=== PATIENT | male | born 1980 | race Caucasian/White ===

== ENCOUNTER 2025-03-29 15:20 | Inpatient (IN) | payer SELFPAY ==
[~2025-03-29] VITALS: Ht 182.9 cm; Wt 83.5 kg
[2025-03-29 16:47] LABS: BASOPHILS % 0.2 % (0.0-2.0); EOSINOPHILS % 0.3 % (0.0-5.0); HEMATOCRIT. 39.6 % (42.0-52.0); HEMOGLOBIN. 13.2 g/dL (14.0-18.0); LYMPHOCYTES % 8.5 % (20.0-50.0); MEAN CORPUSCULAR HEMOGLOBIN 28.8 pg (28.0-32.0); MEAN CORPUSCULAR HGB CONC 33.4 g/dL (31.0-37.0); MEAN CORPUSCULAR VOLUME 86.3 fL (80.0-94.0); MEAN PLATELET VOLUME 8.1 fl (7.4-10.4); MONOCYTES % 5.4 % (2.0-8.0); NEUTROPHILS % 85.6 % (40.0-76.0); PLATELET 290 x1000/uL (130-400); RED BLOOD CELL COUNT 4.59 mill/uL (4.7-6.1); RED CELL DISTRIBUTION WIDTH 14.3 % (11.6-14.6); WHITE BLOOD COUNT 17.9 x1000/uL (4.5-11.0)
[2025-03-29 16:54] LABS: CHLORIDE 99 mEq/L (98-107); POTASSIUM 4.4 mEq/L (3.5-5.1); SODIUM 133 mEq/L (136-145)
[2025-03-29 16:55] LABS: CARBON DIOXIDE 25 mEq/L (21-32)
[2025-03-29 16:56] LABS: CALCIUM 9.4 mg/dL (8.7-10.4)
[2025-03-29 17:00] LABS: CREATININE 0.9 mg/dL (0.6-1.3)
[2025-03-29 17:01] LABS: GLUCOSE 122 mg/dL (70-105); UREA NITROGEN BLOOD 8 mg/dL (9-23)
[2025-03-29 17:50] LABS: CLARITY URINE CLEAR (CLEAR); COLOR URINE DARK YELLOW (YELLOW); GLUCOSE URINE NEGATIVE (NEGATIVE); KETONES URINE NEGATIVE (NEGATIVE); LEUKOCYTE ESTERASE URINE NEGATIVE (NEGATIVE); NITRITE URINE NEGATIVE (NEGATIVE); OCCULT BLOOD URINE NEGATIVE (NEGATIVE); PROTEIN URINE 1+ (NEGATIVE); SPECIFIC GRAVITY URINE 1.025 (1.005-1.030)
[2025-03-29] MEDS ORDERED: CLINDAMYCIN 600 MG in DEXTROSE 5% WATER 50 ML IV ONE (18:00)
[2025-03-29 18:03] LABS: RBC URINE NONE SEEN /hpf (0-2); WBC URINE 0-2 /hpf (0-2)
[2025-03-29 18:04] LABS: BACTERIA URINE TRACE; SQUAMOUS EPITHELIAL CELL URINE RARE /lpf (RARE/1+)
[2025-03-29] MEDS: PIPERACILLIN/TAZO 3.375G/50ML 50 ML IV ONE (18:22)
[2025-03-29] MEDS: SODIUM CHLORIDE 0.9% (SEPSIS BOLUS) IV ONE (18:23)
[2025-03-29] MEDS: HYDROCODONE/ACETAMINOPHEN 5/325MG TABLET PO STA (18:23)
[2025-03-29 18:45] LABS: ETHANOL BLOOD < 10 mg/dL (<10)
[2025-03-29 18:46] LABS: ALANINE AMINOTRANSFERASE 43 IU/L (10-49); ASPARTATE AMINOTRANSFERASE 34 IU/L (<34)
[2025-03-29 18:47] LABS: ALBUMIN 5.1 g/dL (3.2-4.8); BILIRUBIN DIRECT 0.2 mg/dL (<=3.0); BILIRUBIN TOTAL 0.5 mg/dL (0.1-1.0); PROTEIN TOTAL 8.8 g/dL (6.0-8.3)
[2025-03-29 19:01] LABS: PROTHROMBIN TIME 10.9 sec (9.6-11.0)
[2025-03-29] MEDS: CLINDAMYCIN 600MG PREMIX 50 ML IV SCH (19:40)
[2025-03-29] MEDS: VANCOMYCIN 1G PREMIX 200 ML IV ONE (19:56)
[2025-03-30] VITALS (8 sets, daily range): BP systolic 127–155; BP diastolic 69–86; PULSE 89–107; RESP 17–20; TEMP 36.2–36.9; O2SAT 98–100
[2025-03-30] MEDS ORDERED: DIPHENHYDRAMINE 50MG/ML VIAL IV PRN (00:15)
[2025-03-30] MEDS ORDERED: VANCOMYCIN 1G PREMIX 200 ML IV SCH (00:15)
[2025-03-30] MEDS ORDERED: CLONIDINE 0.1MG TABLET PO PRN (00:15)
[2025-03-30] MEDS ORDERED: MAGNESIUM/ALUMINUM HYDROXIDE/SIMETHICONE 30ML UDC PO PRN (00:15)
[2025-03-30] MEDS ORDERED: ACETAMINOPHEN 325MG TABLET PO PRN ×2 (00:15)
[2025-03-30] MEDS ORDERED: ONDANSETRON HCL 4MG/2ML INJ IV PRN (00:15)
[2025-03-30] MEDS ORDERED: ZOLPIDEM TARTRATE 5MG TABLET PO PRN (00:15)
[2025-03-30] MEDS: VANCOMYCIN 1GM/200ML PMX (BAXTER) IV SCH (06:06)
[2025-03-30 09:57] LABS: *AMPHETAMINES SCREEN URINE PRESUMPTIVE POSITIVE (NEGATIVE); *BARBITURATES SCREEN URINE NEGATIVE (NEGATIVE); *BENZODIAZEPINES SCREEN URINE NEGATIVE (NEGATIVE); *COCAINE SCREEN URINE NEGATIVE (NEGATIVE); CANNABINOID URINE SCREEN PRESUMPTIVE POSITIVE (NEGATIVE); ECSTASY MDMA SCREEN URINE CONF.TEST INDICATED (NEGATIVE); METHADONE URINE SCREEN NEGATIVE (NEGATIVE); OPIATES URINE SCREEN NEGATIVE (NEGATIVE); PHENCYCLIDINE URINE SCREEN NEGATIVE (NEGATIVE)
[2025-03-30] MEDS ORDERED: NALOXONE HCL 0.4MG/ML VIAL IV PRN (10:15)
[2025-03-30] MEDS: HYDROCODONE/ACETAMINOPHEN 5/325MG TABLET PO PRN (11:13)
[2025-03-30] MEDS: SODIUM CHLORIDE 0.9% 3ML FLUSH IVF SCH (14:59)
[2025-03-30] MEDS: PIPERACILLIN/TAZO 3.375G/50ML 50 ML IV SCH (14:59)
[2025-03-30] MEDS: CEFTRIAXONE 1GM/50ML 50 ML IV SCH (19:03)
[2025-03-31] VITALS: BP 116/63; PULSE 82; RESP 18; TEMP 36.7; O2SAT 98
[2025-03-31 04:00] VITALS: BP 127/67; PULSE 100; RESP 18; TEMP 36.5; O2SAT 99
[2025-03-31 04:07] LABS: CHLORIDE 100 mEq/L (98-107); POTASSIUM 4.1 mEq/L (3.5-5.1); SODIUM 134 mEq/L (136-145)
[2025-03-31 04:08] LABS: CALCIUM 8.8 mg/dL (8.7-10.4); CARBON DIOXIDE 24 mEq/L (21-32)
[2025-03-31 04:13] LABS: CREATININE 0.8 mg/dL (0.6-1.3); GLUCOSE 151 mg/dL (70-105); UREA NITROGEN BLOOD 11 mg/dL (9-23)
[2025-03-31 08:00] VITALS: BP 136/90; PULSE 100; RESP 18; TEMP 36.6; O2SAT 100
[2025-03-31 10:24] LABS: BASOPHILS % 0.2 % (0.0-2.0); EOSINOPHILS % 0.9 % (0.0-5.0); HEMATOCRIT. 38.3 % (42.0-52.0); HEMOGLOBIN. 13.4 g/dL (14.0-18.0); LYMPHOCYTES % 7.8 % (20.0-50.0); MEAN CORPUSCULAR HEMOGLOBIN 29.7 pg (28.0-32.0); MEAN CORPUSCULAR HGB CONC 34.9 g/dL (31.0-37.0); MEAN CORPUSCULAR VOLUME 85.1 fL (80.0-94.0); MEAN PLATELET VOLUME 7.6 fl (7.4-10.4); MONOCYTES % 6.2 % (2.0-8.0); NEUTROPHILS % 84.9 % (40.0-76.0); PLATELET 374 x1000/uL (130-400); RED CELL DISTRIBUTION WIDTH 13.8 % (11.6-14.6); WHITE BLOOD COUNT 15.1 x1000/uL (4.5-11.0)
[2025-03-31 12:00] VITALS: BP 125/88; PULSE 97; RESP 20; TEMP 36.7; O2SAT 99
[2025-03-31 16:00] VITALS: BP 135/90; PULSE 96; RESP 20; TEMP 36.7; O2SAT 100
[2025-03-31] MEDS: CEFTRIAXONE 1GM/50ML 50 ML IV SCH (17:06)
[2025-03-31 20:00] VITALS: BP 130/71; PULSE 98; RESP 16; TEMP 36.8; O2SAT 95
[2025-03-31] MEDS: VANCOMYCIN 1.25GM/250ML IV SCH (22:45)
[2025-04-01] VITALS: BP 123/70; PULSE 93; RESP 18; TEMP 36.8; O2SAT 97
[2025-04-01 04:00] VITALS: BP 126/76; PULSE 71; RESP 18; TEMP 36.6; O2SAT 99
[2025-04-01 08:00] VITALS: BP 125/71; PULSE 83; RESP 20; TEMP 36.4; O2SAT 97
[2025-04-01 08:43] LABS: BASOPHILS % 0.1 % (0.0-2.0); EOSINOPHILS % 2.1 % (0.0-5.0); HEMATOCRIT. 40.5 % (42.0-52.0); HEMOGLOBIN. 13.5 g/dL (14.0-18.0); LYMPHOCYTES % 13.8 % (20.0-50.0); MEAN CORPUSCULAR HEMOGLOBIN 28.8 pg (28.0-32.0); MEAN CORPUSCULAR HGB CONC 33.5 g/dL (31.0-37.0); MEAN CORPUSCULAR VOLUME 86.2 fL (80.0-94.0); MEAN PLATELET VOLUME 7.2 fl (7.4-10.4); MONOCYTES % 6.6 % (2.0-8.0); NEUTROPHILS % 77.4 % (40.0-76.0); PLATELET 354 x1000/uL (130-400); RED BLOOD CELL COUNT 4.69 mill/uL (4.7-6.1); RED CELL DISTRIBUTION WIDTH 14.1 % (11.6-14.6); WHITE BLOOD COUNT 10.2 x1000/uL (4.5-11.0)
[2025-04-01 08:56] LABS: CARBON DIOXIDE 26 mEq/L (21-32); CHLORIDE 103 mEq/L (98-107); POTASSIUM 4.5 mEq/L (3.5-5.1); SODIUM 137 mEq/L (136-145)
[2025-04-01 08:57] LABS: CALCIUM 9.7 mg/dL (8.7-10.4)
[2025-04-01 09:02] LABS: CREATININE 0.9 mg/dL (0.6-1.3); GLUCOSE 110 mg/dL (70-105); UREA NITROGEN BLOOD 13 mg/dL (9-23)
[2025-04-01 12:00] VITALS: BP 121/77; PULSE 85; RESP 20; TEMP 36.3; O2SAT 98
[2025-04-01 16:00] VITALS: BP 115/63; PULSE 82; RESP 20; TEMP 35.8; O2SAT 98
[2025-04-01 20:00] VITALS: BP 124/71; PULSE 89; RESP 18; TEMP 36.4; O2SAT 100
[2025-04-01] MEDS: LINEZOLID 600MG TABLET PO SCH (20:54)
[2025-04-01] MEDS ORDERED: ACETAZOLAMIDE 250MG TABLET PO SCH (21:00)
[2025-04-02] VITALS: BP 111/60; PULSE 88; RESP 17; TEMP 36.8; O2SAT 99
[2025-04-02 04:00] VITALS: BP 112/78; PULSE 73; RESP 18; TEMP 36.4; O2SAT 97
[2025-04-02 08:00] VITALS: BP 128/82; PULSE 84; RESP 17; TEMP 36.6; O2SAT 98
[2025-04-02 12:00] VITALS: BP 126/71; PULSE 91; RESP 17; TEMP 36.6; O2SAT 98
[2025-04-02 16:00] VITALS: BP 127/77; PULSE 98; RESP 16; TEMP 36.7; O2SAT 96
[2025-04-02 20:00] VITALS: BP 123/76; PULSE 92; RESP 18; TEMP 36.7; O2SAT 98
[2025-04-02] MEDS: MUPIROCIN 2% OINT 15GM NS SCH (21:00)
[2025-04-03] VITALS: BP 120/71; PULSE 89; RESP 18; TEMP 36.6; O2SAT 100
[2025-04-03 04:00] VITALS: BP 113/72; PULSE 73; RESP 18; TEMP 36.6; O2SAT 99
[2025-04-03 08:00] VITALS: BP 125/75; PULSE 90; RESP 18; TEMP 36.7; O2SAT 98
[2025-04-03 12:00] VITALS: BP 118/70; PULSE 90; RESP 18; TEMP 36.7; O2SAT 97
[2025-04-03 15:42] LABS: BASOPHILS % 0.4 % (0.0-2.0); EOSINOPHILS % 3.2 % (0.0-5.0); HEMATOCRIT. 45.1 % (42.0-52.0); HEMOGLOBIN. 14.9 g/dL (14.0-18.0); LYMPHOCYTES % 25.3 % (20.0-50.0); MEAN CORPUSCULAR HEMOGLOBIN 28.9 pg (28.0-32.0); MEAN CORPUSCULAR VOLUME 87.6 fL (80.0-94.0); MEAN PLATELET VOLUME 8.1 fl (7.4-10.4); MONOCYTES % 8.3 % (2.0-8.0); NEUTROPHILS % 62.8 % (40.0-76.0); PLATELET 404 x1000/uL (130-400); RED BLOOD CELL COUNT 5.15 mill/uL (4.7-6.1); WHITE BLOOD COUNT 6.1 x1000/uL (4.5-11.0)
[2025-04-03 15:54] LABS: CHLORIDE 104 mEq/L (98-107); POTASSIUM 4.9 mEq/L (3.5-5.1); SODIUM 139 mEq/L (136-145)
[2025-04-03 15:55] LABS: CALCIUM 9.2 mg/dL (8.7-10.4); CARBON DIOXIDE 23 mEq/L (21-32)
[2025-04-03 16:00] VITALS: BP 117/71; PULSE 93; RESP 18; TEMP 36.7; O2SAT 99
[2025-04-03 16:00] LABS: CREATININE 1.1 mg/dL (0.6-1.3); GLUCOSE 103 mg/dL (70-105); UREA NITROGEN BLOOD 13 mg/dL (9-23)
[2025-04-03 20:00] VITALS: BP 118/72; PULSE 62; RESP 17; TEMP 36.7; O2SAT 100
[2025-04-04] VITALS: BP 142/85; PULSE 92; RESP 19; TEMP 36.6; O2SAT 100
[2025-04-04 08:00] VITALS: BP 120/78; PULSE 73; RESP 18; TEMP 36.5
[2025-04-04] MEDS ORDERED: POLYMYXIN B SULFATE 500000 UNITS/VIAL ONE (08:13)
[2025-04-04] MEDS ORDERED: VANCOMYCIN HCL 1GM VIAL ONE (08:13)
[2025-04-04] MEDS ORDERED: SKIN ADHESIVE 0.7 GM EA TOP ONE (08:14)
[2025-04-04] MEDS ORDERED: LIDOCAINE HCL 1% 20ML VIAL ONE (08:14)
[2025-04-04] MEDS ORDERED: BACITRACIN 14GM TUBE TOP ONE (08:14)
[2025-04-04] MEDS ORDERED: BUPIVACAINE HCL/PF 0.5% (5MG/ML) 10ML ONE (08:14)
[2025-04-04] MEDS ORDERED: PROPOFOL 200MG/20ML VIAL IV ONE (08:25)
[2025-04-04] MEDS ORDERED: MIDAZOLAM HCL 2 MG/2 ML VIAL ONE (08:26)
[2025-04-04] MEDS ORDERED: FENTANYL CITRATE/PF 50MCG/ML 2ML VIAL ONE (08:26)
[2025-04-04] MEDS ORDERED: ONDANSETRON HCL 4MG/2ML INJ IV PRN (08:30)
[2025-04-04] MEDS ORDERED: HYDROMORPHONE HCL/PF 1MG/ML INJ IV PRN (08:30)
[2025-04-04] MEDS ORDERED: ACETAMINOPHEN 1000MG/100ML 100 ML IV ONE (08:32)
[2025-04-04] MEDS ORDERED: ONDANSETRON HCL 4MG/2ML INJ ONE (08:46)
[2025-04-04 12:00] VITALS: BP 121/68; PULSE 75; RESP 18; TEMP 36.3; O2SAT 98
[2025-04-04 16:00] VITALS: BP 111/58; PULSE 77; RESP 18; TEMP 36.6; O2SAT 98
[2025-04-04 20:00] VITALS: BP 123/72; PULSE 89; RESP 18; TEMP 36.2; O2SAT 99
[2025-04-05] VITALS: BP 124/71; PULSE 88; RESP 17; TEMP 36.3; O2SAT 96
[2025-04-05 04:00] VITALS: BP 113/72; PULSE 91; RESP 17; TEMP 36.2; O2SAT 97
[2025-04-05 08:00] VITALS: BP 117/71; PULSE 92; RESP 18; TEMP 36.6; O2SAT 99
[2025-04-05 12:00] VITALS: BP 119/76; PULSE 86; RESP 18; TEMP 36.6; O2SAT 98
[2025-04-05] MEDS ORDERED: SULF1TAB48 MT (14:39)
[2025-04-05 14:41] VITALS: BP 142/78; PULSE 83; TEMP 97.7; O2SAT 99
== END 2025-04-05 15:30 | disposition home or self-care (01) | DRG 720 ==
LOC: ER 15:20 → EDBEDREQ 19:09 → 5WST 22:31 → EDBEDREQTM 22:33 → EDBEDREQ 22:33 → ENRESERV 22:46 → 8EST 03-31 10:08
PROVIDERS: ADMIT Internal Medicine; ATTEND Internal Medicine
PROC: 0JBG0ZZ Excision of Right Lower Arm Subcutaneous Tissue and Fascia, Open Approach (ICD-10-PCS; principal; 2025-04-04)
DX: A41.9 Sepsis, unspecified organism (principal); F12.10 Cannabis abuse, uncomplicated; L02.413 Cutaneous abscess of right upper limb; F19.10 Other psychoactive substance abuse, uncomplicated; L03.113 Cellulitis of right upper limb; B95.62 Methicillin resistant Staphylococcus aureus infection as the cause of diseases classified elsewhere
CPT/HCPCS: 36415; 73080; 73200; 73221; 80048; 80076; 80202; 80305; 80320; 81003; 83605; 84145; 85025; 87070; 87075; 87077; 87186; 93005; 99291; A4606; J0665; J0696; J2003; J2250; J2405; J2543; J2704; J3010; J3370; J3490; J7030; J7060; G0480; J0131